=== PATIENT | female | born 1985 | race African-American/Black ===

== ENCOUNTER 2023-10-08 15:56 | Emergency (ER) | payer MEDICAID ==
[~2023-10-08] VITALS: Ht 160 cm; Wt 55.8 kg
[2023-10-08 15:56] VITALS: BP_SYST 118; PULSE 111; RESP 18; TEMP 97.6; O2SAT 100
[2023-10-08] MEDS: NACL 0.9% 1,000 ML IV ONE (16:48)
[2023-10-08 16:56] LABS: BASOPHILS % (AUTO) 0.8 % (0.0-2.0); EOSINOPHILS % (AUTO) 0.8 % (0.0-4.0); HEMATOCRIT 40.3 % (36-48); HEMOGLOBIN 13.6 g/dL (12.0-16.0); LYMPHOCYTES # (AUTO) 1.5 K/uL (1.0-5.5); MEAN CORPUSCULAR HEMOGLOBIN 28 pg (27-31); MEAN CORPUSCULAR HGB CONC 34 % (32-36); MEAN CORPUSCULAR VOLUME 82 fL (79.0-98.0); MONOCYTES # (AUTO) 0.3 K/uL (0.0-1.0); MONOCYTES % (AUTO) 5.5 % (1.7-9.3); NEUTROPHILS # (AUTO) 3.4 K/uL (1.8-7.7); NEUTROPHILS % (AUTO) 64.9 % (40.0-70.0); PLATELET COUNT (AUTO) 232 K/uL (130-430); RED CELL DISTRIBUTION WIDTH 13.2 % (9.0-15.0); WHITE BLOOD COUNT (AUTO) 5.3 K/uL (4.8-10.8)
[2023-10-08] MEDS ORDERED: DIPHENHYDRAMINE INJ 50 MG/ML VIAL ONE (17:01)
[2023-10-08] MEDS: ONDANSETRON HCL 4 MG/2 ML VIAL IVP ONE ×2 (17:07→23:43)
[2023-10-08] MEDS: MORPHINE 4 MG INJ. 4 MG/ML VIAL IVP ONE (17:08)
[2023-10-08] MEDS: DIPHENHYDRAMINE INJ 50 MG/ML VIAL IVP ONE (17:10)
[2023-10-08 17:15] LABS: ALBUMIN 3.4 g/dL (3.4-4.8); CALCIUM 8.4 mg/dL (8.4-11.0); CREATININE 0.76 mg/dL (0.55-1.30); TOTAL BILIRUBIN 0.6 mg/dL (0.0-1.0); TOTAL PROTEIN, SERUM 6.8 g/dL (6.4-8.3)
[2023-10-08 17:27] LABS: BILIRUBIN,DIRECT 0.1 mg/dL (0.0-0.3)
[2023-10-08 17:56] LABS: BILIRUBIN,URINE NEGATIVE (NEGATIVE); BLOOD, URINE NEGATIVE (NEGATIVE); COLOR,URINE YELLOW (YELLOW); GLUCOSE,URINE NEGATIVE (NEGATIVE); KETONES,URINE NEGATIVE (NEGATIVE); LEUKOCYTE ESTERASE ,URINE NEGATIVE (NEGATIVE); NITRITE, URINE NEGATIVE (NEGATIVE); PH,URINE 8.5 (5.0-8.0); PROTEIN URINE NEGATIVE (NEGATIVE); UROBILINOGEN,URINE 0.2 (0.2-1.0)
[2023-10-08 18:00] LABS: CLARITY/URINE SLIGHTLY HAZY (CLEAR)
[2023-10-08] MEDS: KETOROLAC TROMETHAMINE 30 MG VIAL IM ONE (19:42)
[2023-10-08] MEDS ORDERED: ONDA-8 TL (22:49)
[2023-10-08] MEDS ORDERED: HYDR-3917 PO (22:50)
[2023-10-08] MEDS: OXYCODONE/ACETAMINOPHEN *10*mg/325 mg TABLET PO ONE (23:24)
[2023-10-09 00:01] VITALS: BP_SYST 135; PULSE 88; RESP 22; TEMP 98.1; O2SAT 98
== END 2023-10-08 23:44 | disposition home or self-care (01) ==
LOC: SED 15:56
DX: R10.32 Left lower quadrant pain (principal); R11.2 Nausea with vomiting, unspecified; Z88.8 Allergy status to other drugs, medicaments and biological substances; Z79.899 Other long term (current) drug therapy
CPT/HCPCS: 99285; 74176; 96374; 96375; 76856; 96361; 80076; 80048; 81001; 84702; 83690; 85025; 36415; 96376; 81003; J1200; J1885; J2405; J2270; J7030